=== PATIENT | male | born 1950 | race Two or more races ===

== ENCOUNTER 2019-11-28 05:00 | Day surgery (SDC) | payer OTHER ==
[~2019-11-28 05:00] MED LIST: AMLODIPINE BESY10 MG PO; ASPIR 8181 MG PO; EZALLOR SPRINKL10 MG PO
== END 2019-11-28 10:00 | disposition home or self-care (01) ==
LOC: CIR.AMB 05:00 → EDBD 08:00 → CIR.AMB 10:00
PROVIDERS: ATTEND Specialist
DX: L02.413 Cutaneous abscess of right upper limb (principal); L72.0 Epidermal cyst